=== PATIENT | male | born 1995 | race Caucasian/White ===

== ENCOUNTER 2021-04-23 17:12 | Emergency (ER) | payer OTHER ==
[~2021-04-23] VITALS: Ht 182.9 cm; Wt 86.3 kg
[2021-04-23 17:28] VITALS: BP 131/96
[2021-04-23] MEDS ORDERED: SULF1TAB24 PO (17:40)
--- NOTE | 2021-04-23 17:40 | PHYS DOC ---
Past History Past Surgical History: Tonsillectomy General Adult EDM: Chief Complaint: ABSCESS HPI: HPI: 26-year-old male presents with concern for abscess on the right side of his neck. He thought he got bit by a spider couple days ago but the area is inflamed more. He attempted to pop it himself but he got no output. He went to the [facility] and they sent him to the emergency room. Patient has not had boils or abscesses in the past. He denies fever or chills. He has no other complaints at this time. Review of Systems: Review of Systems: Constitutional: Denies fever or chills Eyes: Denies change in visual acuity HENT: Denies nasal congestion or sore throat Respiratory: Denies cough or shortness of breath Cardiovascular: Denies chest pain or edema GI: Denies abdominal pain, nausea, vomiting, bloody stools or diarrhea : Denies dysuria Musculoskeletal: Denies back pain or joint pain Integument: Abscess right neck Neurologic: Denies headache, focal weakness or sensory changes Endocrine: Denies polyuria or polydipsia Lymphatic: Denies swollen glands Psychiatric: Denies depression or anxiety Physical Exam: PE: Constitutional: Well developed, well nourished, no acute distress, non-toxic appearance. [] HENT: Normocephalic, atraumatic, bilateral external ears normal, oropharynx moist, no oral exudates, nose normal. [] Eyes: PERRLA, EOMI, conjunctiva normal, no discharge. [] Neck: Normal range of motion, no tenderness, supple, no stridor. [] Cardiovascular: Heart rate regular rhythm, no murmur [] Lungs & Thorax: Bilateral breath sounds clear to auscultation [] Abdomen: Bowel sounds normal, soft, no tenderness, no masses, no pulsatile masses. [] Skin: Erythematous, warm to centimeter abscess of the right superficial neck. [] Back: No tenderness, no CVA tenderness. [] Extremities: No tenderness, no cyanosis, no clubbing, ROM intact, no edema. [] Neurologic: Alert and oriented X 3, normal motor function, normal sensory functi on, no focal deficits noted. [] Psychologic: Affect normal, judgement normal, mood normal. [] Current Patient Data: Vital Signs: Vital Signs Date Time Temp Pulse Resp B/P (MAP) Pulse Ox O2 Delivery O2 Flow Rate FiO2 04/23/21 17:28 98.1 63 16 131/96 (108) 97 Room Air EKG: EKG: [] Radiology/Procedures: Radiology/Procedures: [] Heart Score: C/O Chest Pain: N/A Risk Factors: Risk Factors: DM, Current or recent (<one month) smoker, HTN, HLP, family his tory of CAD, obesity. Risk Scores: Score 0 - 3: 2.5% MACE over next 6 weeks - Discharge Home Score 4 - 6: 20.3% MACE over next 6 weeks - Admit for Clinical Observation Score 7 - 10: 72.7% MACE over next 6 weeks - Early Invasive Strategies Course & Med Decision Making: Course & Med Decision Making Pertinent Labs and Imaging studies reviewed. (See chart for details) The patient did have an abscess with a fluctuant center on the side of his neck. I performed an I&D. See note below for details. His tetanus is up-to-date. I will discharge him with Bactrim for 7 days. We will give the first dose in the emergency room. [] Dragon Disclaimer: Dragon Disclaimer: This electronic medical record was generated, in whole or in part, using a voice recognition dictation system. Incision and Drainage Indication: 2 cm abscess of the right superficial neck Procedure: I obtained verbal consent from the patient for incision and drainage of his neck abscess. The area was cleaned with alcohol. No anesthesia was used. I made a 3 mm incision with a #11 blade. There was purulent material expressed. I broke up loculations with a sterile Q-tip shaft. There was further drainage. A clean dressing was applied. The patient's tetanus is up-to-date. The patient tolerated the procedure well. Complications: None Departure Departure: Impression: Primary Impression: Abscess of neck Disposition: HOME / SELF CARE / HOMELESS Condition: IMPROVED Referrals: PCPNICOLAS (PCP) Patient Instructions: Abscess, [id number] Scripts Sulfamethoxazole/Trimethoprim (BACTRIM DS TABLET) 1 Each Tablet 1 TAB PO BID for cellulitis for 7 Days, #14 TAB 0 Refills Prov: GENARO ARIZA DO 04/23/21 GENARO ARIZA DO Apr 23, 2021 17:40
[2021-04-23] MEDS ORDERED: SMZ/TMP 800/160MG TABLET. PO ONE (17:45)
== END 2021-04-23 17:48 | disposition home or self-care (01) ==
LOC: ER 17:12
DX: L02.11 Cutaneous abscess of neck (principal)
CPT/HCPCS: 10060; 99283